=== PATIENT | male | born 1940 | race Caucasian/White ===

== ENCOUNTER → 2020-05-19 | Outpatient (CLI) | payer MEDICARE | END | disposition home or self-care (01) | LOC: OIH 11:10 | PROVIDERS: ATTEND Internal Medicine | DX: M47.816 Spondylosis without myelopathy or radiculopathy, lumbar region (principal); M54.5 Low back pain | CPT/HCPCS: 72100 ==

== ENCOUNTER 2022-03-21 07:26 | Emergency (ER) | payer MEDICARE ==
[~2022-03-21] VITALS: Ht 180.3 cm; Wt 79.4 kg
[~2022-03-21 07:26] MED LIST: AMIO200T68 PO; APIX5TAB PO; ASPI-1197 PO; ATOR-2 PO; CEFD300C3 PO; FOLI1 PO; LEVO50CA4 PO; MIDO2.5T PO; PANT40TA PO; TAMS-1 PO
[2022-03-21 07:36] VITALS: BP 0/0
== END 2022-03-21 08:57 ==
LOC: EDH 07:26
DX: I46.9 Cardiac arrest, cause unspecified (principal); F03.90 Unspecified dementia, unspecified severity, without behavioral disturbance, psychotic disturbance, mood disturbance, and anxiety; I25.10 Atherosclerotic heart disease of native coronary artery without angina pectoris; Z79.01 Long term (current) use of anticoagulants; Z79.82 Long term (current) use of aspirin; Z79.899 Other long term (current) drug therapy; Z95.810 Presence of automatic (implantable) cardiac defibrillator
CPT/HCPCS: 92950; 99291